=== PATIENT | male | born 1965 | race Caucasian/White ===

== ENCOUNTER 2020-04-29 15:29 | Outpatient (RCR) | payer OTHER, SELFPAY ==
[2020-04-29] MEDS: COVID-19 VACC, MRNA(PFIZER)/PF 30 MCG/0.3 ML SYRINGE IM (14:06)
[2020-05-20] MEDS: COVID-19 VACC, MRNA(PFIZER)/PF 30 MCG/0.3 ML SYRINGE IM (13:53)
== END 2020-07-20 23:59 ==
LOC: IMMUN 15:29
PROVIDERS: Visit Provider Family Medicine
DX: Z23 Encounter for immunization (principal)
CPT/HCPCS: 0001A; 0002A; 91300